=== PATIENT | male | born 1945 | race Caucasian/White ===

== ENCOUNTER → 2017-07-10 | Outpatient (CLI) | payer OTHER | LOC: M.CT 08:47 | DX: J98.4 Other disorders of lung (principal); J84.10 Pulmonary fibrosis, unspecified; J90 Pleural effusion, not elsewhere classified; I25.10 Atherosclerotic heart disease of native coronary artery without angina pectoris; M25.78 Osteophyte, vertebrae; K76.0 Fatty (change of) liver, not elsewhere classified ==

== ENCOUNTER → 2020-11-04 | Day surgery (SDC) | payer OTHER ==
[~2020-11-04] MED LIST: ATENOLOL 25 MG25 M1 PO; BACTRIM DS TAB1 EACH PO; LISINOPRIL-HCT1 EAC2 PO
--- NOTE | ~2020-11-04 | OP ---
[facility] [address] [place] [address] OPERATIVE REPORT Name: MINA ALBARRAN Room: [facility] M.R.#: [id number] Admission: 11/04/20 Attend Phys: Michael Espinal Discharge: Date of : 47 Report #: [id number] THIS REPORT FOR: cc: Anny Woodruff Stefany RNP Patterson, Jonathan D. MD ~ DATE OF SURGERY: 11/04/2020 PREOPERATIVE DIAGNOSIS: Left back benign mass with abscess. POSTOPERATIVE DIAGNOSIS: Left back benign mass with abscess. OPERATION: Excision of a 10 cm benign left back mass and drainage of abscess. SURGEON: Michael Espinal MD. ANESTHESIA: General. ESTIMATED BLOOD LOSS: Minimal. SPECIMENS: 1. Fluid for culture and sensitivity. 2. Back mass for pathology. DESCRIPTION OF PROCEDURE: After informed consent was obtained, the patient was brought to the operating room and placed supine. SCDs were placed and working, preoperative antibiotics were administered, general anesthesia was induced. The patient was placed in the right lateral decubitus position. The area was then prepped and draped in the usual sterile fashion. I began by making a 15 cm incision across the mass. Immediately, there was drainage of cyst contents and pus. This was cultured. I was able to isolate the cyst sac. This was dissected around and I was able to get all around the sac over to healthy tissue on all sides. The cyst sac was sent as a specimen. The area was then copiously irrigated with normal saline. The skin was reapproximated with interrupted 2-0 nylon suture. One edge was kept open and packed. Sterile dressings were applied. COMPLICATIONS: None. DISPOSITION: The patient was taken to recovery in satisfactory condition. By: [id number] Espinal MD /nt
[2020-11-04 08:54] LABS: HEMATOCRIT 40.3 % (42.0-52.0); HEMOGLOBIN 13.9 gm/dL (14.0-18.0); MCH 31.2 pg (26.0-34.0); MCHC 34.5 g/dL (28.0-37.0); MCV 90.5 fL (80.0-100.0); RBC 4.45 mil/uL (4.50-6.00); RDW-CV 13.4 % (10.5-14.5)
[2020-11-04 09:11] LABS: CALCIUM 8.9 mg/dL (8.5-10.1); CREATININE 1.5 mg/dL (0.6-1.3); POTASSIUM 3.1 mmol/L (3.5-5.1)
--- NOTE | 2020-11-04 11:01 | EKG ---
[place] [address] ELECTROCARDIOGRAM REPORT Name: MINA ALBARRAN Room: [facility].#: [id number] Admission: 11/04/20 Attend Phys: Michael Jay Discharge: Date of : 47 Date of Service: 11/04/20826 Report #: [id number] THIS REPORT FOR: //name// [facility] Test Date: 2020-11-04 Test Time: 08:27:30 Pat Name: MINA ALBARRAN Department: Room: Gender: Manager Of Network: [place] : 1945 Requested By: Gunner Jimenez Order Number: [id number] MD: Aj Mccracken Measurements Intervals [place] Rate: 70 P: -15 HI: 141 QRS: 13 QRSD: 110 T: -18 QT: 420 QTc: 454 Interpretive Statements Sinus rhythm Atrial premature complex Borderline T abnormalities, inferior leads No previous ECG available for comparison Electronically Signed On 11-04-2020 11:01:43 CDT by Aj Mccracken [email or web address] <ELECTRONICALLY SIGNED> By: Aj Mccracken MD, [facility] 11/04/20 1101 6 6 Aj Mccracken MD, [facility] /EPI
--- NOTE | 2020-11-08 13:08 | PATH ---
[facility] [address] [place] [address] PATHOLOGY RPT PROCEDURE Name: MINA ALBARRAN Room: [facility] M.R.#: [id number] Admission: 11/04/20 Date of : 47 Discharge: Report #: [id number] Path Case #: [id number] [facility] Accession Number: [id number] . 01 Material submitted: . back - LEFT BACK TISSUE. Modifiers: left . 01 Clinical history: . INCISION AND DRAINAGE SEBACEOUS CYST I AND D LEFT BACK MASS/SEBACEOUS CYST . 02 Diagnosis: Left back tissue: - Benign skin with large epithelial inclusion cyst showing chronic inflammation and fibrosis. (HORACIO:martha; 11/07/2020) [facility] 11/07/2020 1657 Local . 02 Electronically signed: . Lopez Hernandez MD, Pathologist NPI- [id number] . 01 Gross description: . The specimen is received in formalin, labeled "Mina Albarran, left back tissue". Received is a segment of yellow-penaloza fibroadipose tissue with attached pale penaloza skin measuring 6.5 x 3.5 x 3.2 cm in greatest dimensions. Sectioning reveals a previously ruptured unilocular cystic structure measuring 3.1 cm that is devoid of content. The specimen is submitted representatively in cassette A1. (CAA; 11/06/2020) QA/[facility] 11/06/2020 1302 Local . 02 Pathologist provided ICD-10: L72.0 . 02 CPT . 194265 Specimen Comment: A courtesy copy of this report has been sent to [phone] Specimen Comment: [phone] Specimen Comment: Report sent to DR. LOYA / DR LANDAVERDE Performed at: [address] [id number] MD Alvaro Cleveland MD Phone: [phone] Performed at: [address] [place] [address] PATHOLOGY RPT PROCEDURE Name: MINA ALBARRAN Room: [facility]..#: [id number] Admission: 11/04/20 Date of : 47 Discharge: Report #: [id number] Path Case #: [id number] [address] [place], [place] [id number] MD Lopez Hernandez MD Phone: [phone]
== END | disposition home or self-care (01) ==
LOC: M.SUR 05:16
PROVIDERS: Anesthesiology; ATTEND Surgery
DX: L72.0 Epidermal cyst (principal); L02.212 Cutaneous abscess of back [any part, except buttock and flank]; Z98.890 Other specified postprocedural states; Z20.822 Contact with and (suspected) exposure to COVID-19; Z79.899 Other long term (current) drug therapy

== ENCOUNTER 2020-11-11 11:01 | Emergency (ER) | payer OTHER ==
[~2020-11-11] VITALS: Ht 182.9 cm; Wt 99.8 kg
[2020-11-11 11:45] LABS: ABSOLUTE BASOPHILS 0.1 thou/uL (0.0-0.2); ABSOLUTE EOSINOPHILS 0.2 thou/uL (0.0-0.7); ABSOLUTE LYMPHOCYTES 2.6 thou/uL (0.8-5.3); ABSOLUTE MONOCYTES 1.1 thou/uL (0.0-1.2); ABSOLUTE NEUTROPHILS 8.8 thou/uL (1.6-8.1); BASOPHILS 0.6 %; EOSINOPHILS 1.6 %; HEMATOCRIT 43.3 % (42.0-52.0); HEMOGLOBIN 14.9 gm/dL (14.0-18.0); LYMPHOCYTES 20.3 %; MCH 31.6 pg (26.0-34.0); MCHC 34.4 g/dL (28.0-37.0); MCV 91.9 fL (80.0-100.0); MONOCYTES 8.4 %; MPV 6.8 fl. (7.2-11.1); NUCLEATED RBCS 0 /100WBC; PLATELET COUNT* 281 thou/uL (150-400); POLYS 69.1 %; RBC 4.71 mil/uL (4.50-6.00); RDW-CV 13.5 % (10.5-14.5); WBC 12.8 thou/uL (4.0-11.0)
[2020-11-11 11:55] LABS: CREATININE 1.4 mg/dL (0.6-1.3); POTASSIUM 3.8 mmol/L (3.5-5.1)
[2020-11-11 12:00] LABS: ALBUMIN 3.7 g/dL (3.4-5.0); TOTAL BILIRUBIN 0.3 mg/dL (<0.1-1.0); TOTAL PROTEIN 7.6 g/dL (6.4-8.2)
[2020-11-11 13:23] LABS: URINE BILIRUBIN NEGATIVE (Negative); URINE BLOOD NEGATIVE (Negative); URINE CLARITY CLEAR; URINE COLOR YELLOW; URINE GLUCOSE-RANDOM NEGATIVE (Negative); URINE KETONES NEGATIVE (Negative); URINE LEUKOCYTES NEGATIVE (Negative); URINE NITRITE NEGATIVE (Negative); URINE PROTEIN NEGATIVE (Negative); URINE SPECIFIC GRAVITY 1.025 (1.005-1.030); URINE UROBILINOGEN 0.2 E.U./dl (0.2-1.0)
[2020-11-11] MEDS ORDERED: ZOFRAN ODT4 MG PO (13:25)
[2020-11-11 14:02] VITALS: BP 151/66
--- NOTE | 2020-11-12 11:48 | EKG ---
[place] [address] ELECTROCARDIOGRAM REPORT Name: AVISMINA PATEL Room: [facility]#: [id number] Admission: 11/11/20 Attend Phys: Discharge: 11/11/20 Date of : 47 Date of Service: 11/11/20 1126 Report #: [id number] THIS REPORT FOR: //name// [facility] ED Test Date: 2020-11-11 Test Time: 11:26:26 Pat Name: MINA ALBARRAN Department: Room: Gender: Surgical Assistant Certified: : 1945 Requested By: Constantino Guerreor Order Number: [id number] MD: Sandip Do Measurements Intervals [place] Rate: 66 P: DE: QRS: 2 QRSD: 113 T: 21 QT: 417 QTc: 437 Interpretive Statements NSR Borderline intraventricular conduction delay Minimal ST elevation, inferior leads Compared to ECG 11/04/2020 08:27:30 ST (T wave) deviation now present Sinus rhythm no longer present Atrial premature complex(es) no longer present T-wave abnormality no longer present Electronically Signed On 11-12-2020 11:47:58 CDT by Sandip Do [email or web address] <ELECTRONICALLY SIGNED> By: Maddi Do MD, [facility] 11/12/20 1147 1126 1126 Maddi Do MD, [facility] /EPI
== END 2020-11-11 14:03 | disposition home or self-care (01) ==
LOC: M.ERS 11:01
PROVIDERS: Emergency Medicine
DX: R53.83 Other fatigue (principal); Z20.822 Contact with and (suspected) exposure to COVID-19; R11.0 Nausea; I10 Essential (primary) hypertension; Z79.899 Other long term (current) drug therapy